=== PATIENT | female | born 1950 | race Caucasian/White ===

== ENCOUNTER → 2019-08-11 10:47 | Outpatient (CLI) | payer MEDICARE, SELFPAY ==
--- NOTE | ~2019-08-11 | CT_ITS ---
EXAMINATION: CT chest w con DATE: 08/11/2019 11:29 INDICATION: Other disease of mediastinum, mediastinal mass, initial work-up TECHNIQUE: Computed tomography (CT) of the chest was performed with 75 mL Omnipaque-350 intravenous c ontrast. Additional 3D reconstructions utilizing coronal maximum intensity projection (MIP) were perf ormed. Automated exposure control and iterative reconstruction technique were employed. The dose-tara th product was 194.89 mGy-cm. COMPARISON: None FINDINGS: Mild emphysema. There are a few scattered small pulmonary nodules, the largest are pleural-based nodu les measuring 5 mm in the right lower lobe and 4 mm in the left lower lobe. No pneumonia, pulmonary e belle. Mild discoid atelectasis in the right lower lobe extending along the major fissure. Heart size is normal. Atherosclerotic coronary artery calcifications. No pericardial effusion. Thoracic aorta is normal in caliber with no dissection. No pathologically enlarged thoracic lymphadenopathy. No abnorm al mediastinal masses identified. 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 Mild S-shaped thoracic scoliosis with moderate spondylosis. 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 The visualized upper abdomen is unremarkable. IMPRESSION: 1. No mediastinal masses or pathologically enlarged lymphadenopathy. 2. Mild emphysema with a few scattered small pulmonary nodules the largest measuring 5 mm. Could cons ider optional follow-up low-dose noncontrast chest CT in one year. 3. 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 Reviewed, dictated and finalized at location A. [employer]IC[employer] SPECIALIST IMPRESSION: 1. No mediastinal masses or pathologically enlarged lymphadenopathy. 2. Mild emphysema with a few scattered small pulmonary nodules the largest jayne uring 5 mm. Could consider optional follow-up low-dose noncontrast chest CT in one year. 3. 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
[2019-08-11 11:14] LABS: Estimated Glomerular Filt Rate > 60
== END ==
PROVIDERS: PCP Internal Medicine; Visit Provider Internal Medicine
DX: J98.59 Other diseases of mediastinum, not elsewhere classified (principal); J43.9 Emphysema, unspecified; R91.8 Other nonspecific abnormal finding of lung field; D17.9 Benign lipomatous neoplasm, unspecified
CPT/HCPCS: 36415; 71260; Q9967

== ENCOUNTER → 2020-08-16 10:22 | Outpatient (CLI) | payer MEDICARE, SELFPAY ==
--- NOTE | ~2020-08-16 | CT_ITS ---
EXAMINATION: CT diagnostic chest wo con DATE: 08/16/2020 10:46 INDICATION: Lung nodule TECHNIQUE: Computed tomography (CT) of the chest was performed without intravenous contrast. The dose -length product (DLP) was 72.47 mGy-cm. Automated exposure control and iterative reconstruction techn ique were employed. COMPARISON: 08/11/2019 FINDINGS: There is mild emphysema. There is a stable 5 mm nodule in the right middle lobe. A stable 4 mm nodule is present in the left lower lobe. No new pulmonary nodules are identified. The lungs are free of focal airspace opacities. There is mild atelectasis and scarring in the right lower lobe. The re is no pleural effusion or pneumothorax. No pathologically enlarged thoracic lymph nodes are identi fied. The heart size is normal. An intramuscular lipoma is again noted in the left subscapularis musc le. Calcified coronary artery atherosclerosis is noted. There is moderate thoracic spondylosis. IMPRESSION: 1. Mild emphysema. 2. Stable pulmonary nodules measuring up to 5 mm, consistent with old granulomatous disease. Reviewed, dictated and finalized at location A. R [employer] RESPONDER IMPRESSION: 1. Mild emphysema. 2. Stable pulmonary nodules measuring up to 5 mm, consistent with old granuloma tous disease.
== END ==
DX: R91.8 Other nonspecific abnormal finding of lung field (principal); J43.9 Emphysema, unspecified
CPT/HCPCS: 71250

== ENCOUNTER → 2021-08-20 15:44 | Outpatient (CLI) | payer MEDICARE, SELFPAY ==
--- NOTE | ~2021-08-20 | CT_ITS ---
EXAMINATION:CT lung screening DATE: 08/20/2021 16:06 INDICATION: Personal history of nicotine dependence. Smoker who quit 2 years ago with 41 pack year hi story. TECHNIQUE: Computed tomography (CT) of the chest was performed without intravenous contrast. Automate d exposure control and iterative reconstruction technique were employed. The dose-length product (DLP ) was 77.46 mGy-cm. COMPARISON: Chest CT 08/16/2020 FINDINGS: There is mild scarring at the lung apices. There is mild emphysema. There is a 6 mm nodule in right middle lobe without change. There is mild atelectasis bilaterally. There is a 5 mm nodule in left lower lobe without change. No pleural effusion. The heart size is normal. There are coronary ar brant calcifications. No pericardial effusion. There is a lipoma in left subscapularis muscle. There i s severe thoracic spondylosis. IMPRESSION: 1. Lung-RADS category 2: Benign appearance or behavior. Continue annual screening with noncontrast lo w-dose chest CT in 12 months. Reviewed, dictated and finalized at location A. IMPRESSION: 1. Lung-RADS category 2: Benign appearance or behavior. Continue annual screeni ng with noncontrast low-dose chest CT in 12 months.
== END ==
DX: Z12.2 Encounter for screening for malignant neoplasm of respiratory organs (principal); Z87.891 Personal history of nicotine dependence
CPT/HCPCS: 71271

== ENCOUNTER → 2022-08-23 15:49 | Outpatient (CLI) | payer MEDICARE, SELFPAY ==
--- NOTE | ~2022-08-23 | CT_ITS ---
EXAMINATION: CT lung screening DATE: 08/23/2022 16:10 INDICATION: Personal history of nicotine dependence TECHNIQUE: Computed tomography (CT) of the chest was performed without intravenous contrast. The dose -length product was 97.62 mGy-cm. Automated exposure control and iterative reconstruction technique w ere employed. COMPARISON: CT dated 08/20/2021 and 08/16/2020 FINDINGS: Stable 5 mm right middle lobe nodule, image 83 . Stable 4 mm left lower lobe nodule, image 89. No endobronchial lesions. There is atherosclerosis of the aorta and coronary arteries. Upper abdomen is unremarkable. No significant pleural or pericardia l effusion. No pneumothorax. There is right lower lobe atelectasis/scarring, unchanged. There is scol iosis. Moderate thoracic spondylosis. There is a lipoma of the left subscapularis muscle. IMPRESSION: 1. Lung-RADS category 2: Benign appearance or behavior. Continue annual screening with noncontrast lo w-dose chest CT in 12 months. Reviewed, dictated and finalized at location A. IMPRESSION: 1. Lung-RADS category 2: Benign appearance or behavior. Continue annual screeni ng with noncontrast low-dose chest CT in 12 months.
== END ==
DX: R91.1 Solitary pulmonary nodule (principal); Z87.891 Personal history of nicotine dependence
CPT/HCPCS: 71271

== ENCOUNTER 2023-08-29 14:21 | Outpatient (CLI) | payer MEDICARE, SELFPAY ==
--- NOTE | ~2023-08-29 | CT_ITS ---
EXAMINATION: CT lung screening DATE: 08/29/2023 14:39 INDICATION: Personal history of nicotine dependence, prior smoker with 41 pack year history TECHNIQUE: Computed tomography (CT) of the chest was performed without intravenous contrast. The dose -length product (DLP) was 116.72 mGy-cm. Automated exposure control and iterative reconstruction tech [employer] were employed. COMPARISON: 08/23/2022 FINDINGS: There is mild emphysema. There is a stable 5 mm nodule of the right middle lobe. There is a stable 4 mm nodule in the left lower lobe. No new pulmonary nodules are identified. There is mild at electasis and scarring of the right lower lobe. No pleural effusion or pneumothorax. No pathologicall y enlarged thoracic lymph nodes are identified. The heart size is normal. Again noted is an intramusc ular lipoma in the left subscapularis muscle. There is calcified coronary artery atherosclerosis. The re is moderate thoracic spondylosis. IMPRESSION: 1. Lung-RADS category 2: Benign appearance or behavior. Continue annual screening with noncontrast lo w-dose chest CT in 12 months. Reviewed, dictated and finalized at location F. IMPRESSION: 1. Lung-RADS category 2: Benign appearance or behavior. Continue annual screeni ng with noncontrast low-dose chest CT in 12 months.
== END 2023-08-29 14:22 ==
LOC: MICIMG 14:23
DX: Z12.2 Encounter for screening for malignant neoplasm of respiratory organs (principal); Z87.891 Personal history of nicotine dependence
CPT/HCPCS: 71271

== ENCOUNTER 2024-08-30 13:53 | Outpatient (CLI) | payer MEDICARE, SELFPAY ==
--- NOTE | ~2024-08-30 | CT_ITS ---
EXAMINATION: CT lung screening DATE: 08/30/2024 14:09 INDICATION: Nicotine dependence TECHNIQUE: Computed tomography (CT) of the chest was performed without intravenous contrast. Addition al 3D reconstructions utilizing coronal maximum intensity projection (MIP) were performed. Automated exposure control and iterative reconstruction technique were employed. The dose-length product was 96 .08 mGy-cm. COMPARISON: 08/29/2023 FINDINGS: Mild emphysema. Stable appearance of chronic discoid atelectasis/scarring in the right lower lobe and lingula. Unchanged 5 mm right middle lobe nodule unchanged smaller 2-3 mm large in the left lower lo be and lingula. No new or enlarging pulmonary nodules, pneumonia, pulmonary edema or pleural effusion . Heart size is normal. Atherosclerotic coronary artery calcific location. No pericardial effusion. T horacic aorta is normal in caliber. No pathologically enlarged thoracic lymphadenopathy. 11.7 x 4.5 x 3.5 cm left subscapularis intramuscular lipoma. Visualized upper abdomen is unremarkable. Mild S-sha ped scoliosis of the thoracic spine with moderate to severe spondylosis. IMPRESSION: 1. Lung-RADS category 2: Benign appearance or behavior. Continue annual screening with noncontrast lo w-dose chest CT in 12 months. Reviewed, dictated and finalized at location B. IMPRESSION: 1. Lung-RADS category 2: Benign appearance or behavior. Continue annual screeni ng with noncontrast low-dose chest CT in 12 months.
== END 2024-08-30 13:54 | disposition home or self-care (01) ==
LOC: MICIMG 13:54
PROVIDERS: PCP Nurse Practitioner Family
DX: Z12.2 Encounter for screening for malignant neoplasm of respiratory organs (principal); F17.210 Nicotine dependence, cigarettes, uncomplicated
CPT/HCPCS: 71271

== ENCOUNTER 2024-12-07 14:44 | Outpatient (CLI) | payer MEDICARE, SELFPAY ==
--- NOTE | ~2024-12-07 | XR_ITS ---
Cervical Spine: AP, lateral, open-mouth views Clinical History: Pain Findings: The normal lordotic curve is maintained. No fracture or subluxation seen. There is advanced degenerative disc changes C6-C7. There is mild degenerative change in the remainder of the cervical spine. There is diffuse, advanced facet arthropathy throughout the cervical spine. No definite instab ility on flexion or extension. Pre-vertebral soft tissues are unremarkable. Impression: Moderate to advanced degenerative spondylosis, as above. Reviewed, dictated and finalized at location M. Impression: Moderate to advanced degenerative spondylosis, as above.
== END 2024-12-07 14:45 | disposition home or self-care (01) ==
PROVIDERS: PCP Nurse Practitioner Family; Visit Provider Nurse Practitioner Family
DX: M47.892 Other spondylosis, cervical region (principal)
CPT/HCPCS: 72050

== ENCOUNTER 2025-04-19 08:23 | Outpatient (CLI) | payer MEDICARE, SELFPAY ==
--- NOTE | ~2025-04-19 | US_ITS ---
EXAMINATION: US retroperitoneal duplex ltd DATE: 04/19/2025 09:29 [employer]ICAL CAR [employer]ER INDICATION: Accelerated hypertension. TECHNIQUE: Sonographic imaging of the kidneys was performed with a 3.5 MHz transducer. Retroperitoneal duplex sonogram of the renal arteries also obtained. FINDINGS: No focal flow abnormalities are seen in the renal arteries on color Doppler. The peak systolic velocity ranges of the right and left renal arteries and aorta are 155 cm per second, 80 cm per second, and 41 cm per second, respectively. The velocities and renal to aortic ratios are within normal limits. IMPRESSION: 1. No Doppler evidence of renal artery stenosis. Reviewed, dictated and finalized at location C. [employer] CHECKER
== END 2025-04-19 08:24 | disposition home or self-care (01) ==
PROVIDERS: PCP Nurse Practitioner Family; Visit Provider Nurse Practitioner Family
DX: I10 Essential (primary) hypertension (principal)
CPT/HCPCS: 93976